=== PATIENT | female | born 1980 ===

== ENCOUNTER 2022-03-24 17:10 | Emergency (ER) | payer MEDICAID ==
[2022-03-24 18:30] VITALS: BP 126/81
== END 2022-03-25 04:48 | disposition left against medical advice (07) ==
LOC: ED 17:10
DX: M54.2 Cervicalgia (principal); Z53.21 Procedure and treatment not carried out due to patient leaving prior to being seen by health care provider; V89.2XXA Person injured in unspecified motor-vehicle accident, traffic, initial encounter; Y93.89 Activity, other specified; Y92.89 Other specified places as the place of occurrence of the external cause; Y99.8 Other external cause status